=== PATIENT | male | born 1945 | race African-American/Black ===

== ENCOUNTER 2020-08-22 13:50 | Inpatient (IN) ==
[2020-08-22 14:14] LABS: ABG Base Excess -1.1 MMOL/L (-2.5-2.5); ABG HCO3 23.5 MMOL/L (20-26); ABG Oxygen Saturation 97.3 % (95-100); ABG PCO2 37.7 MM HG (35-48); ABG PH 7.401 (7.35-7.45); ABG PO2 96.7 MM HG (80-95); ABG TCO2 21.6 MMOL/L (23-27); Pt O2 Delivery Device Ventilator
[2020-08-22] MEDS ORDERED: ALBUTEROL 2.5 MG/3 ML NEB RESP TX PRN (14:38)
[2020-08-22] MEDS ORDERED: ONDANSETRON 4 MG/2 ML VIAL IV PRN (14:38)
[2020-08-22 15:31] LABS: Albumin 2.6 G/DL (3.4-5.0); Bilirubin,Total 0.4 MG/DL (0.2-1.0); Calcium 8.2 MG/DL (8.5-10.1); Ferritin 716.5 ng/ml (26-388); Total Protein 7.8 G/DL (6.4-8.3)
[2020-08-22 15:49] LABS: Basophils % 0.1 % (0.0-0.8); Eosinophils % 0.1 % (0.00-10.9); Hemoglobin 8.9 GM/DL (14.0-18.0); Immature Granulocytes % 0.4 %; Immature Granulocytes Absolute 0.03 #; Lymphocytes # 1.5 10*3/uL (1.4-4.0); Lymphocytes % 20.9 % (21.2-54.2); Mean Corpuscular HGB Conc 30.7 GM/DL (32-36); Mean Corpuscular Volume 91.2 FL (87-102); Mean Platelet Volume 12.9 FL (9.6-12.0); Neutrophils % 69.5 % (38.7-73.9); Platelet Count 183 T/CUMM (130-400); Red Blood Count 3.18 MC/CUMM (3.8-5.5); Red Cell Distribution Width 13.1 % (9.3-17.3); White Blood Count 7.3 T/CUMM (4-12)
[2020-08-22] MEDS: FAMOTIDINE 20 MG/2 ML VIAL IV SCH (17:41)
[2020-08-22] MEDS ORDERED: MIDAZOLAM 100 MG in SODIUM CHLORIDE 0.9% 80 ML IV SCH (20:30)
[2020-08-22] MEDS: MIDAZOLAM 100 MG in SODIUM CHLORIDE 0.9% 80 ML IV PRN (21:31)
[2020-08-22] MEDS: ENOXAPARIN 40 MG/0.4 ML SYRINGE SUBCUT SCH (22:09)
[2020-08-23] MEDS: FAMOTIDINE 20 MG/2 ML VIAL IV SCH ×2 (03:51→16:02)
[2020-08-23 05:15] LABS: ABG Base Excess -1.8 MMOL/L (-2.5-2.5); ABG HCO3 22.9 MMOL/L (20-26); ABG Oxygen Saturation 95.9 % (95-100); ABG PCO2 36.3 MM HG (35-48); ABG PH 7.402 (7.35-7.45); ABG TCO2 20.4 MMOL/L (23-27); Allen Test Positive; Pt O2 Delivery Device Ventilator
[2020-08-23 06:11] LABS: Albumin 2.5 G/DL (3.4-5.0); Bilirubin,Total 0.4 MG/DL (0.2-1.0); Calcium 8.2 MG/DL (8.5-10.1); Osmolality,Calculated 319.4 MOS/KG (273-304); Total Protein 7.4 G/DL (6.4-8.3)
[2020-08-23 07:37] LABS: Basophils % 0.1 % (0.0-0.8); Hematocrit 27.7 VOL% (42.0-52.0); Hemoglobin 8.9 GM/DL (14.0-18.0); Immature Granulocytes % 0.5 %; Immature Granulocytes Absolute 0.04 #; Lymphocytes # 1.1 10*3/uL (1.4-4.0); Lymphocytes % 13.8 % (21.2-54.2); Mean Corpuscular HGB Conc 32.1 GM/DL (32-36); Mean Corpuscular Volume 87.7 FL (87-102); Mean Platelet Volume 12.6 FL (9.6-12.0); Monocytes % 10.4 % (1.7-12.7); Neutrophils % 75.2 % (38.7-73.9); Platelet Count 208 T/CUMM (130-400); Red Blood Count 3.16 MC/CUMM (3.8-5.5); Red Cell Distribution Width 13.3 % (9.3-17.3); White Blood Count 7.6 T/CUMM (4-12)
[2020-08-23] MEDS ORDERED: NOREPINEPHRINE 8 MG in SODIUM CHLORIDE 0.9% 242 ML IV PRN (07:54)
[2020-08-23] MEDS ORDERED: SODIUM CHLORIDE 0.9% 1,000 ML IV STA (07:54)
[2020-08-23] MEDS ORDERED: NOREPINEPHRINE 4 MG/4 ML VIAL IV ONE (07:55)
[2020-08-23] MEDS ORDERED: PHENYLEPHRINE DRIP 40 MG/250 ML PREMIX IV ONE (07:58)
[2020-08-23] MEDS: PHENYLEPHRINE DRIP 40 MG/250 ML PREMIX IV PRN (09:00)
[2020-08-23] MEDS: ACETAMINOPHEN 650 MG SUPP RECTAL PRN ×2 (09:05→23:17)
[2020-08-23] MEDS: ENOXAPARIN 40 MG/0.4 ML SYRINGE SUBCUT SCH ×2 (10:03→22:00)
[2020-08-23] MEDS: MIDAZOLAM 100 MG in SODIUM CHLORIDE 0.9% 80 ML IV PRN (15:00)
[2020-08-24] MEDS ORDERED: MIDAZOLAM 100 MG in SODIUM CHLORIDE 0.9% 80 ML IV PRN (02:57)
[2020-08-24] MEDS ORDERED: ROCURONIUM 500 MG in SODIUM CHLORIDE 0.9% 500 ML IV PRN (02:57)
[2020-08-24] MEDS: ACETAMINOPHEN 650 MG SUPP RECTAL PRN (03:15)
[2020-08-24] MEDS: FAMOTIDINE 20 MG/2 ML VIAL IV SCH ×2 (03:30→15:42)
[2020-08-24 03:49] LABS: Basophils % 0.1 % (0.0-0.8); Hemoglobin 8.2 GM/DL (14.0-18.0); Immature Granulocytes % 0.4 %; Immature Granulocytes Absolute 0.03 #; Lymphocytes # 1.3 10*3/uL (1.4-4.0); Lymphocytes % 18.5 % (21.2-54.2); Mean Corpuscular HGB Conc 31.5 GM/DL (32-36); Mean Corpuscular Volume 88.1 FL (87-102); Mean Platelet Volume 12.4 FL (9.6-12.0); Monocytes % 8.9 % (1.7-12.7); Neutrophils % 72.1 % (38.7-73.9); Platelet Count 221 T/CUMM (130-400); Red Blood Count 2.95 MC/CUMM (3.8-5.5); Red Cell Distribution Width 13.4 % (9.3-17.3); White Blood Count 7.1 T/CUMM (4-12)
[2020-08-24 04:11] LABS: Albumin 2.2 G/DL (3.4-5.0); Bilirubin,Total 0.4 MG/DL (0.2-1.0); Calcium 8.1 MG/DL (8.5-10.1); Osmolality,Calculated 320.7 MOS/KG (273-304); Total Protein 6.9 G/DL (6.4-8.3)
[2020-08-24 04:19] LABS: Calcium 7.6 MG/DL (8.5-10.1); Osmolality,Calculated 318.7 MOS/KG (273-304)
[2020-08-24] MEDS: fentaNYL INJ 1,250 MCG in SODIUM CHLORIDE 0.9% 225 ML IV PRN (04:50)
[2020-08-24 05:27] LABS: ABG Base Excess -2.7 MMOL/L (-2.5-2.5); ABG HCO3 22.1 MMOL/L (20-26); ABG Oxygen Saturation 94.5 % (95-100); ABG PCO2 37.9 MM HG (35-48); ABG PH 7.383 (7.35-7.45); ABG PO2 75.9 MM HG (80-95); ABG TCO2 23.2 MMOL/L (23-27)
[2020-08-24] MEDS ORDERED: GLUCAGON 1 MG VIAL IM PRN (08:37)
[2020-08-24] MEDS ORDERED: DEXTROSE 50% 25 GM/50 ML VIAL IV PRN (08:37)
[2020-08-24] MEDS ORDERED: cefTRIAXone 1,000 MG VIAL ONE (08:51)
[2020-08-24] MEDS: cefTRIAXone 1,000 MG in SYRINGE 1 EACH IV SCH (09:00)
[2020-08-24] MEDS: POTASSIUM CHLORIDE 20 MEQ/15 ML UDCUP PER TUBE SCH ×2 (09:19→13:55)
[2020-08-24] MEDS: ENOXAPARIN 40 MG/0.4 ML SYRINGE SUBCUT SCH ×2 (09:23→20:31)
[2020-08-24] MEDS: SODIUM CHLOR 0.45% KCL 20 MEQ 20 MEQ/1,000 ML BAG IV SCH ×2 (10:05→23:49)
[2020-08-24] MEDS: ATORVASTATIN 10 MG TABLET PER TUBE SCH (10:28)
[2020-08-24] MEDS ORDERED: REMDESIVIR 200 MG in SODIUM CHLORIDE 0.9% 210 ML IV ONE (15:00)
[2020-08-24] MEDS ORDERED: SODIUM CHLORIDE 0.9% 1,000 ML IV PRN (15:48)
[2020-08-24] MEDS: ACETAMINOPHEN 325 MG TABLET PO PRN (20:30)
[2020-08-24] MEDS: MIDAZOLAM 100 MG in SODIUM CHLORIDE 0.9% 80 ML IV PRN (21:05)
[2020-08-25] MEDS: fentaNYL INJ 1,250 MCG in SODIUM CHLORIDE 0.9% 225 ML IV PRN ×2 (01:00→22:00)
[2020-08-25] MEDS: SODIUM CHLOR 0.45% KCL 20 MEQ 20 MEQ/1,000 ML BAG IV SCH ×2 (01:52→15:13)
[2020-08-25 03:17] LABS: ABG Base Excess -3.6 MMOL/L (-2.5-2.5); ABG HCO3 21.8 MMOL/L (20-26); ABG PCO2 40.7 MM HG (35-48); ABG PH 7.347 (7.35-7.45); ABG PO2 66.1 MM HG (80-95); ABG TCO2 23.1 MMOL/L (23-27); Allen Test Positive; Pt O2 Delivery Device Ventilator
[2020-08-25] MEDS: FAMOTIDINE 20 MG/2 ML VIAL IV SCH ×2 (03:47→15:57)
[2020-08-25 04:54] LABS: Basophils % 0.3 % (0.0-0.8); Eosinophils # 0.1 10*3/uL (0.0-0.87); Eosinophils % 1.2 % (0.00-10.9); Hematocrit 26.1 VOL% (42.0-52.0); Hemoglobin 8.2 GM/DL (14.0-18.0); Immature Granulocytes % 0.9 %; Immature Granulocytes Absolute 0.06 #; Lymphocytes # 1.6 10*3/uL (1.4-4.0); Lymphocytes % 23.8 % (21.2-54.2); Mean Corpuscular HGB Conc 31.4 GM/DL (32-36); Mean Corpuscular Volume 88.5 FL (87-102); Mean Platelet Volume 12.1 FL (9.6-12.0); Monocytes % 8.9 % (1.7-12.7); Neutrophils % 64.9 % (38.7-73.9); Platelet Count 249 T/CUMM (130-400); Red Blood Count 2.95 MC/CUMM (3.8-5.5); White Blood Count 6.9 T/CUMM (4-12)
[2020-08-25] MEDS: ACETAMINOPHEN 325 MG TABLET PO PRN (05:07)
[2020-08-25 05:09] LABS: Bilirubin,Total 0.4 MG/DL (0.2-1.0); Calcium 7.9 MG/DL (8.5-10.1); Osmolality,Calculated 313.9 MOS/KG (273-304)
[2020-08-25 05:39] LABS: Hypochromasia 1+; Lymphocytes 14 % (20-55); Microcytosis 1+; Platelet Estimate Adequate; Segmented Neutrophils 77 % (50-85); Total Cells Counted 100
[2020-08-25] MEDS: PHENYLEPHRINE DRIP 40 MG/250 ML PREMIX IV PRN (06:47)
[2020-08-25] MEDS: ATORVASTATIN 10 MG TABLET PER TUBE SCH (08:29)
[2020-08-25] MEDS: ENOXAPARIN 40 MG/0.4 ML SYRINGE SUBCUT SCH ×2 (08:29→21:50)
[2020-08-25] MEDS: cefTRIAXone 1,000 MG in SYRINGE 1 EACH IV SCH (08:30)
[2020-08-25] MEDS: methylPREDNISolone SOD SUC 40 MG/1 ML VIAL IV SCH ×2 (10:30→17:16)
[2020-08-25] MEDS: REMDESIVIR 100 MG in SODIUM CHLORIDE 0.9% 100 ML IV SCH (10:30)
[2020-08-25] MEDS: MIDAZOLAM 100 MG in SODIUM CHLORIDE 0.9% 80 ML IV PRN (19:19)
[2020-08-26] MEDS ORDERED: DEXTROSE 50% 25 GM/50 ML VIAL IV PRN (00:07)
[2020-08-26 04:11] LABS: ABG Base Excess -4.9 MMOL/L (-2.5-2.5); ABG HCO3 20.3 MMOL/L (20-26); ABG Oxygen Saturation 97.4 % (95-100); ABG PCO2 38.3 MM HG (35-48); ABG PH 7.343 (7.35-7.45); ABG PO2 100.2 MM HG (80-95); ABG TCO2 21.5 MMOL/L (23-27)
[2020-08-26 04:27] LABS: Hematocrit 21.6 VOL% (42.0-52.0); Hemoglobin 6.9 GM/DL (14.0-18.0); Immature Granulocytes % 0.8 %; Immature Granulocytes Absolute 0.04 #; Lymphocytes # 0.8 10*3/uL (1.4-4.0); Lymphocytes % 17.6 % (21.2-54.2); Mean Corpuscular HGB Conc 31.9 GM/DL (32-36); Mean Corpuscular Volume 88.9 FL (87-102); Mean Platelet Volume 12.9 FL (9.6-12.0); Monocytes % 4.2 % (1.7-12.7); Neutrophils % 77.4 % (38.7-73.9); Platelet Count 199 T/CUMM (130-400); Red Blood Count 2.43 MC/CUMM (3.8-5.5); Red Cell Distribution Width 14.5 % (9.3-17.3); White Blood Count 4.7 T/CUMM (4-12)
[2020-08-26 04:43] LABS: Calcium 7.6 MG/DL (8.5-10.1); Osmolality,Calculated 316.3 MOS/KG (273-304)
[2020-08-26 04:47] LABS: Lymphocytes 14 % (20-55); Platelet Estimate Adequate; Segmented Neutrophils 81 % (50-85); Total Cells Counted 100
[2020-08-26 04:48] LABS: Burr Cells Slight; Hypochromasia 1+; Microcytosis 1+; Ovalocytes Slight
[2020-08-26] MEDS: SODIUM CHLOR 0.45% KCL 20 MEQ 20 MEQ/1,000 ML BAG IV SCH (05:11)
[2020-08-26] MEDS: FAMOTIDINE 20 MG/2 ML VIAL IV SCH ×2 (05:12→15:00)
[2020-08-26] MEDS: methylPREDNISolone SOD SUC 40 MG/1 ML VIAL IV SCH ×3 (05:12→20:28)
[2020-08-26] MEDS: INSULIN LISPRO 100 UNIT/ML SUBCUT SCH ×3 (06:40→18:15)
[2020-08-26] MEDS: ATORVASTATIN 10 MG TABLET PER TUBE SCH (08:20)
[2020-08-26] MEDS: ENOXAPARIN 40 MG/0.4 ML SYRINGE SUBCUT SCH ×2 (08:20→20:27)
[2020-08-26] MEDS: cefTRIAXone 1,000 MG in SYRINGE 1 EACH IV SCH (08:21)
[2020-08-26] MEDS ORDERED: SODIUM CHLORIDE 0.9% 1,000 ML IV PRN (08:59)
[2020-08-26] MEDS: REMDESIVIR 100 MG in SODIUM CHLORIDE 0.9% 100 ML IV SCH (12:09)
[2020-08-26] MEDS: MAGNESIUM OXIDE 400 MG TABLET PER TUBE SCH ×2 (12:09→20:28)
[2020-08-26] MEDS: METOCLOPRAMIDE 10 MG/2 ML VIAL IV SCH ×2 (16:26→21:04)
[2020-08-26 19:04] LABS: Hematocrit 29.3 VOL% (42.0-52.0)
[2020-08-26 19:11] LABS: Hemoglobin 9.5 GM/DL (14.0-18.0)
[2020-08-26] MEDS: INSULIN GLARGINE 100 UNIT/ML SUBCUT SCH (21:04)
[2020-08-27] MEDS: INSULIN LISPRO 100 UNIT/ML SUBCUT SCH ×4 (00:50→18:04)
[2020-08-27] MEDS: fentaNYL INJ 1,250 MCG in SODIUM CHLORIDE 0.9% 225 ML IV PRN (02:22)
[2020-08-27 03:44] LABS: ABG HCO3 20.3 MMOL/L (20-26); ABG Oxygen Saturation 98.1 % (95-100); ABG PCO2 38.1 MM HG (35-48); ABG PH 7.336 (7.35-7.45); ABG TCO2 18.2 MMOL/L (23-27)
[2020-08-27] MEDS: methylPREDNISolone SOD SUC 40 MG/1 ML VIAL IV SCH ×3 (04:50→20:35)
[2020-08-27] MEDS: METOCLOPRAMIDE 10 MG/2 ML VIAL IV SCH ×4 (04:50→21:00)
[2020-08-27] MEDS: FAMOTIDINE 20 MG/2 ML VIAL IV SCH ×2 (04:50→15:17)
[2020-08-27 05:26] LABS: Basophils % 0.1 % (0.0-0.8); Hematocrit 30.7 VOL% (42.0-52.0); Hemoglobin 9.8 GM/DL (14.0-18.0); Immature Granulocytes % 1.1 %; Immature Granulocytes Absolute 0.09 #; Lymphocytes # 1.2 10*3/uL (1.4-4.0); Lymphocytes % 14.6 % (21.2-54.2); Mean Corpuscular HGB Conc 31.9 GM/DL (32-36); Mean Corpuscular Volume 89.2 FL (87-102); Mean Platelet Volume 12.9 FL (9.6-12.0); Monocytes % 6.1 % (1.7-12.7); NRBC # 0.03 10*3/uL; Neutrophils % 78.1 % (38.7-73.9); Platelet Count 274 T/CUMM (130-400); Red Blood Count 3.44 MC/CUMM (3.8-5.5); Red Cell Distribution Width 16.1 % (9.3-17.3); White Blood Count 8.1 T/CUMM (4-12)
[2020-08-27 05:47] LABS: Burr Cells Slight; Hypochromasia 1+; Lymphocytes 10 % (20-55); Microcytosis 1+; Ovalocytes Slight; Platelet Estimate Adequate; Segmented Neutrophils 86 % (50-85); Total Cells Counted 100
[2020-08-27 05:51] LABS: Calcium 7.8 MG/DL (8.5-10.1); Osmolality,Calculated 311.6 MOS/KG (273-304)
[2020-08-27] MEDS: ATORVASTATIN 10 MG TABLET PER TUBE SCH (08:21)
[2020-08-27] MEDS: cefTRIAXone 1,000 MG in SYRINGE 1 EACH IV SCH (08:21)
[2020-08-27] MEDS: ENOXAPARIN 40 MG/0.4 ML SYRINGE SUBCUT SCH ×2 (08:21→20:35)
[2020-08-27] MEDS: MAGNESIUM OXIDE 400 MG TABLET PER TUBE SCH ×2 (08:21→20:35)
[2020-08-27] MEDS ORDERED: POLYETHYLENE GLYCOL POWDER 17 GM PACK PO PRN (09:21)
[2020-08-27] MEDS: REMDESIVIR 100 MG in SODIUM CHLORIDE 0.9% 100 ML IV SCH (09:42)
[2020-08-27] MEDS ORDERED: VERAPAMIL 120 MG TABLET PO SCH (13:30)
[2020-08-27] MEDS: MIDAZOLAM 100 MG in SODIUM CHLORIDE 0.9% 80 ML IV PRN (14:37)
[2020-08-27] MEDS: VERAPAMIL 80 MG TABLET PO SCH ×2 (15:17→20:35)
[2020-08-27] MEDS: INSULIN GLARGINE 100 UNIT/ML SUBCUT SCH (20:35)
[2020-08-28] MEDS: INSULIN LISPRO 100 UNIT/ML SUBCUT SCH ×5 (00:02→23:52)
[2020-08-28 04:09] LABS: Allen Test Positive; Pt O2 Delivery Device Ventilator
[2020-08-28] MEDS: FAMOTIDINE 20 MG/2 ML VIAL IV SCH ×2 (04:30→16:54)
[2020-08-28] MEDS: METOCLOPRAMIDE 10 MG/2 ML VIAL IV SCH ×4 (04:31→22:00)
[2020-08-28 04:33] LABS: ABG Base Excess -3.4 MMOL/L (-2.5-2.5); ABG HCO3 21.6 MMOL/L (20-26); ABG Oxygen Saturation 98.8 % (95-100); ABG PCO2 37.9 MM HG (35-48); ABG PH 7.364 (7.35-7.45); ABG TCO2 19.6 MMOL/L (23-27)
[2020-08-28 05:24] LABS: Basophils % 0.3 % (0.0-0.8); Hematocrit 34.9 VOL% (42.0-52.0); Hemoglobin 11.2 GM/DL (14.0-18.0); Immature Granulocytes % 2.5 %; Immature Granulocytes Absolute 0.25 #; Lymphocytes # 1.1 10*3/uL (1.4-4.0); Lymphocytes % 11.2 % (21.2-54.2); Mean Corpuscular HGB Conc 32.1 GM/DL (32-36); Mean Corpuscular Volume 87.9 FL (87-102); Mean Platelet Volume 12.7 FL (9.6-12.0); Monocytes % 6.8 % (1.7-12.7); NRBC # 0.09 10*3/uL; Neutrophils % 79.2 % (38.7-73.9); Platelet Count 334 T/CUMM (130-400); Red Blood Count 3.97 MC/CUMM (3.8-5.5); Red Cell Distribution Width 16.5 % (9.3-17.3); White Blood Count 10.1 T/CUMM (4-12)
[2020-08-28 05:39] LABS: Alanine Aminotransferase 66 U/L (16-61); Alkaline Phosphatase 98 U/L (45-117); Aspartate Amino Transferase 138 U/L (0-37); Bilirubin,Total < 0.39 MG/DL (0.2-1.0); Blood Urea Nitrogen 58 MG/DL (7-18); Calcium 8.1 MG/DL (8.5-10.1); Estimated Glom Filtration Rate 69 ML/MIN; Glucose 193 MG/DL (74-106); Osmolality,Calculated 308.7 MOS/KG (273-304)
[2020-08-28 05:41] LABS: Ferritin 1272.1 ng/ml (26-388)
[2020-08-28] MEDS ORDERED: METOPROLOL TARTRATE 50 MG TABLET ONE (07:45)
[2020-08-28] MEDS: cefTRIAXone 1,000 MG in SYRINGE 1 EACH IV SCH (08:16)
[2020-08-28] MEDS: ENOXAPARIN 40 MG/0.4 ML SYRINGE SUBCUT SCH ×2 (08:16→20:02)
[2020-08-28] MEDS: CHOLECALCIFEROL 1,000 UNIT TABLET PO SCH (08:17)
[2020-08-28] MEDS: METOPROLOL TARTRATE 50 MG TABLET PO SCH ×2 (08:17→20:01)
[2020-08-28] MEDS: MAGNESIUM OXIDE 400 MG TABLET PER TUBE SCH ×2 (08:18→20:02)
[2020-08-28] MEDS: ATORVASTATIN 10 MG TABLET PER TUBE SCH (08:18)
[2020-08-28] MEDS: ASCORBIC ACID 500 MG TABLET PO SCH (08:18)
[2020-08-28] MEDS: ZINC GLUCONATE 50 MG TABLET PO SCH (08:18)
[2020-08-28] MEDS: VERAPAMIL 80 MG TABLET PO SCH ×3 (08:18→20:00)
[2020-08-28] MEDS: ESCITALOPRAM 10 MG TABLET PO SCH (08:18)
[2020-08-28] MEDS: methylPREDNISolone SOD SUC 40 MG/1 ML VIAL IV SCH ×2 (08:40→22:37)
[2020-08-28] MEDS: REMDESIVIR 100 MG in SODIUM CHLORIDE 0.9% 100 ML IV SCH (09:30)
[2020-08-28] MEDS: hydrALAZINE 20 MG/1 ML VIAL IV PRN (10:36)
[2020-08-28] MEDS ORDERED: ALBUMIN 5% 25 GM in PREMIX 1 EACH IV ONE (11:46)
[2020-08-28] MEDS: ALBUTEROL INHALER 18 GM INH SCH ×2 (16:26→18:05)
[2020-08-28] MEDS: INSULIN GLARGINE 100 UNIT/ML SUBCUT SCH (20:01)
[2020-08-28] MEDS: clonazePAM 0.5 MG TABLET PER TUBE PRN (20:03)
[2020-08-29] MEDS: ALBUTEROL INHALER 18 GM INH SCH ×4 (02:03→20:49)
[2020-08-29] MEDS: hydrALAZINE 20 MG/1 ML VIAL IV PRN (02:08)
[2020-08-29 04:33] LABS: Basophils % 0.2 % (0.0-0.8); Hematocrit 34.1 VOL% (42.0-52.0); Immature Granulocytes Absolute 0.55 #; Lymphocytes # 1.1 10*3/uL (1.4-4.0); Lymphocytes % 9.6 % (21.2-54.2); Mean Corpuscular HGB Conc 32.3 GM/DL (32-36); Mean Corpuscular Volume 87.9 FL (87-102); Mean Platelet Volume 12.3 FL (9.6-12.0); Monocytes % 9.8 % (1.7-12.7); NRBC # 0.08 10*3/uL; Neutrophils % 75.4 % (38.7-73.9); Platelet Count 364 T/CUMM (130-400); Red Blood Count 3.88 MC/CUMM (3.8-5.5); Red Cell Distribution Width 16.7 % (9.3-17.3)
[2020-08-29 04:49] LABS: Calcium 8.3 MG/DL (8.5-10.1)
[2020-08-29] MEDS: FAMOTIDINE 20 MG/2 ML VIAL IV SCH ×2 (04:58→18:51)
[2020-08-29] MEDS: METOCLOPRAMIDE 10 MG/2 ML VIAL IV SCH ×3 (04:59→18:52)
[2020-08-29] MEDS: INSULIN LISPRO 100 UNIT/ML SUBCUT SCH ×4 (05:10→22:24)
[2020-08-29 05:11] LABS: ABG Base Excess -1.4 MMOL/L (-2.5-2.5); ABG HCO3 23.2 MMOL/L (20-26); ABG Oxygen Saturation 97.3 % (95-100); ABG PCO2 39.6 MM HG (35-48); ABG TCO2 21.1 MMOL/L (23-27); Allen Test Positive
[2020-08-29 05:12] LABS: Hypochromasia 1+; Lymphocytes 9 % (20-55); Microcytosis 1+; Platelet Estimate Adequate; Segmented Neutrophils 83 % (50-85); Total Cells Counted 100
[2020-08-29 05:37] LABS: ABG PH 7.381 (7.35-7.45)
[2020-08-29] MEDS: METOPROLOL TARTRATE 50 MG TABLET PO SCH ×2 (08:37→20:48)
[2020-08-29] MEDS: VERAPAMIL 80 MG TABLET PO SCH ×3 (08:37→20:48)
[2020-08-29] MEDS: ATORVASTATIN 10 MG TABLET PER TUBE SCH (08:37)
[2020-08-29] MEDS: ESCITALOPRAM 10 MG TABLET PO SCH (08:37)
[2020-08-29] MEDS: ZINC GLUCONATE 50 MG TABLET PO SCH (08:38)
[2020-08-29] MEDS: ASCORBIC ACID 500 MG TABLET PO SCH (08:38)
[2020-08-29] MEDS: MAGNESIUM OXIDE 400 MG TABLET PER TUBE SCH ×2 (08:38→20:48)
[2020-08-29] MEDS: ENOXAPARIN 40 MG/0.4 ML SYRINGE SUBCUT SCH ×2 (08:38→20:48)
[2020-08-29] MEDS: CHOLECALCIFEROL 1,000 UNIT TABLET PO SCH (08:38)
[2020-08-29] MEDS: cefTRIAXone 1,000 MG in SYRINGE 1 EACH IV SCH (08:39)
[2020-08-29] MEDS: methylPREDNISolone SOD SUC 40 MG/1 ML VIAL IV SCH ×2 (10:20→18:51)
[2020-08-29] MEDS: LOSARTAN 25 MG TABLET PO SCH (11:52)
[2020-08-29] MEDS: DEXTROSE 5% 1,000 ML IV SCH (12:00)
[2020-08-29] MEDS: BACLOFEN 10 MG TABLET PO SCH (20:48)
[2020-08-30] MEDS: METOCLOPRAMIDE 10 MG/2 ML VIAL IV SCH ×5 (00:36→22:06)
[2020-08-30] MEDS: methylPREDNISolone SOD SUC 40 MG/1 ML VIAL IV SCH ×3 (02:46→17:02)
[2020-08-30] MEDS: ALBUTEROL INHALER 18 GM INH SCH ×4 (02:47→22:08)
[2020-08-30 05:31] LABS: Basophils % 0.3 % (0.0-0.8); Hematocrit 34.2 VOL% (42.0-52.0); Hemoglobin 11.3 GM/DL (14.0-18.0); Immature Granulocytes % 4.2 %; Immature Granulocytes Absolute 0.42 #; Lymphocytes % 10.2 % (21.2-54.2); Mean Corpuscular Volume 87.5 FL (87-102); Mean Platelet Volume 12.1 FL (9.6-12.0); Monocytes % 8.8 % (1.7-12.7); NRBC # 0.04 10*3/uL; Neutrophils % 76.5 % (38.7-73.9); Platelet Count 350 T/CUMM (130-400); Red Blood Count 3.91 MC/CUMM (3.8-5.5); Red Cell Distribution Width 16.7 % (9.3-17.3); White Blood Count 9.9 T/CUMM (4-12)
[2020-08-30] MEDS: FAMOTIDINE 20 MG/2 ML VIAL IV SCH ×2 (05:58→17:01)
[2020-08-30 06:04] LABS: Ferritin 500.7 ng/ml (26-388); Hypochromasia 1+; Lymphocytes 13 % (20-55); Microcytosis 1+; Platelet Estimate Adequate; Segmented Neutrophils 79 % (50-85); Total Cells Counted 100
[2020-08-30 06:14] LABS: Calcium 8.1 MG/DL (8.5-10.1); Osmolality,Calculated 288.5 MOS/KG (273-304)
[2020-08-30] MEDS: DEXTROSE 5% 1,000 ML IV SCH (06:31)
[2020-08-30] MEDS: MAGNESIUM OXIDE 400 MG TABLET PER TUBE SCH ×2 (09:58→22:03)
[2020-08-30] MEDS: LOSARTAN 25 MG TABLET PO SCH (09:58)
[2020-08-30] MEDS: VERAPAMIL 80 MG TABLET PO SCH ×3 (09:58→22:07)
[2020-08-30] MEDS: CHOLECALCIFEROL 1,000 UNIT TABLET PO SCH (09:58)
[2020-08-30] MEDS: ATORVASTATIN 10 MG TABLET PER TUBE SCH (09:58)
[2020-08-30] MEDS: cefTRIAXone 1,000 MG in SYRINGE 1 EACH IV SCH (09:59)
[2020-08-30] MEDS: clonazePAM 0.5 MG TABLET PER TUBE PRN (09:59)
[2020-08-30] MEDS: METOPROLOL TARTRATE 50 MG TABLET PO SCH ×2 (10:00→22:06)
[2020-08-30] MEDS: ESCITALOPRAM 10 MG TABLET PO SCH (10:00)
[2020-08-30] MEDS: ASCORBIC ACID 500 MG TABLET PO SCH (10:00)
[2020-08-30] MEDS: BACLOFEN 10 MG TABLET PO SCH ×2 (10:00→22:03)
[2020-08-30] MEDS: ENOXAPARIN 40 MG/0.4 ML SYRINGE SUBCUT SCH ×2 (10:07→22:03)
[2020-08-30] MEDS: ZINC GLUCONATE 50 MG TABLET PO SCH (10:08)
[2020-08-30] MEDS: INSULIN LISPRO 100 UNIT/ML SUBCUT SCH ×4 (17:00→22:43)
[2020-08-31] MEDS: ALBUTEROL INHALER 18 GM INH SCH ×2 (02:35→09:36)
[2020-08-31] MEDS: methylPREDNISolone SOD SUC 40 MG/1 ML VIAL IV SCH ×2 (02:36→09:39)
[2020-08-31] MEDS: METOCLOPRAMIDE 10 MG/2 ML VIAL IV SCH ×2 (04:25→10:30)
[2020-08-31] MEDS: FAMOTIDINE 20 MG/2 ML VIAL IV SCH (04:25)
[2020-08-31 06:13] LABS: Basophils % 0.1 % (0.0-0.8); Hematocrit 34.4 VOL% (42.0-52.0); Hemoglobin 11.5 GM/DL (14.0-18.0); Immature Granulocytes Absolute 0.43 #; Lymphocytes # 1.2 10*3/uL (1.4-4.0); Lymphocytes % 8.3 % (21.2-54.2); Mean Corpuscular HGB Conc 33.4 GM/DL (32-36); Mean Corpuscular Volume 85.6 FL (87-102); Mean Platelet Volume 12.2 FL (9.6-12.0); NRBC # 0.03 10*3/uL; Neutrophils % 80.6 % (38.7-73.9); Platelet Count 356 T/CUMM (130-400); Red Blood Count 4.02 MC/CUMM (3.8-5.5); Red Cell Distribution Width 15.8 % (9.3-17.3); White Blood Count 14.4 T/CUMM (4-12)
[2020-08-31 06:29] LABS: Osmolality,Calculated 290.4 MOS/KG (273-304)
[2020-08-31] MEDS ORDERED: MAGNESIUM SULF RIDER 2 GM in PREMIX 1 EACH IV PRN (07:54)
[2020-08-31] MEDS ORDERED: MAGNESIUM SULF RIDER 4 GM in PREMIX 1 EACH IV PRN (07:54)
[2020-08-31 08:59] VITALS: BP 156/91
[2020-08-31] MEDS: cefTRIAXone 1,000 MG in SYRINGE 1 EACH IV SCH ×2 (09:36→10:32)
[2020-08-31] MEDS: ESCITALOPRAM 10 MG TABLET PO SCH (09:36)
[2020-08-31] MEDS: ATORVASTATIN 10 MG TABLET PER TUBE SCH (09:36)
[2020-08-31] MEDS: INSULIN LISPRO 100 UNIT/ML SUBCUT SCH ×2 (09:36→11:19)
[2020-08-31] MEDS: ZINC GLUCONATE 50 MG TABLET PO SCH (09:36)
[2020-08-31] MEDS: VERAPAMIL 80 MG TABLET PO SCH (09:36)
[2020-08-31] MEDS: BACLOFEN 10 MG TABLET PO SCH (09:36)
[2020-08-31] MEDS: LOSARTAN 25 MG TABLET PO SCH (09:36)
[2020-08-31] MEDS: METOPROLOL TARTRATE 50 MG TABLET PO SCH (09:36)
[2020-08-31] MEDS: MAGNESIUM OXIDE 400 MG TABLET PER TUBE SCH (09:36)
[2020-08-31] MEDS: ENOXAPARIN 40 MG/0.4 ML SYRINGE SUBCUT SCH (09:36)
[2020-08-31] MEDS: clonazePAM 0.5 MG TABLET PER TUBE PRN (09:36)
[2020-08-31] MEDS: CHOLECALCIFEROL 1,000 UNIT TABLET PO SCH (09:36)
[2020-08-31] MEDS: ASCORBIC ACID 500 MG TABLET PO SCH (09:36)
== END 2020-08-31 12:15 | DRG 207 ==
LOC: N.ED 13:50 → N.EDINP 14:38 → SUATTDRO 14:38 → N.CC 08-24 20:00 → N.2E 08-29 15:07
PROVIDERS: ADMIT Internal Medicine; ATTEND Internal Medicine